=== PATIENT | male | born 1955 | race Caucasian/White ===

== ENCOUNTER 2024-11-02 18:49 | Emergency (ER) | payer MEDICARE, SELFPAY ==
[2024-11-02 18:50] VITALS: BP 135/81; PULSE 83; RESP 16; TEMP 37.1; O2SAT 95; BMI 28.1
--- NOTE | 2024-11-02 18:57 | EKG12_ITS ---
Test Reason : CP Blood Pressure : */* mmHG Vent. Rate : 84 BPM Atrial Rate : 84 BPM P-R Int : 218 ms QRS Dur : 100 ms QT Int : 348 ms P-R-T Axes : 15 53 34 degrees QTcB Int : 411 ms Sinus rhythm with 1st degree A-V block Otherwise normal ECG Confirmed by ERIN TAY, LALY ([id number]), staff editor ESTUARDO VILLEGAS ([id number]) on 11/03/2024 1:36:14 PM Referred By: DR HOLLOWAY Confirmed By: LALY KHAN MD
--- NOTE | 2024-11-02 19:17 | ED.VIS.CHEST ---
HPI History of Present Illness Chief Complaint: Chest Pain Informant: patient and spouse/S.O. Narrative Narrative: Intermittent left-sided chest heaviness for last 8 days. Numbness down the back of his left arm. States come and go. 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 This goes away. No dyspnea no nausea no diaphoresis. No cardiac history. History of hyperlipidemia was previously on a statin. Denies diabetes or hypertension. Brother had his first [place] in his 60s. Patient does not smoke. No cough symptoms. Currently symptom-free. Denies any history of stress test or heart catheterizations. Patient with 2 episodes today. States long the symptoms will last will be a few minutes. Prior Similar Symptoms: No CVD Risk Factors: Positive for Hypercholesterolemia; Negative for Hypertension, Diabetes, Family History 1' </=55 or Smoking PE Risk Factors: Negative for Recent Travel/Surgery, Recent Immobilization or Prior DVT or PE PFSH PFSH Medical History no medical history Home Medications ?Medication ?Instructions ?Recorded ?Last Taken ?Type NK 11/02/24 Unknown History Allergy/AdvReac Type Severity Reaction Status Date / Time No Known Allergies Allergy Verified 11/02/24 18:50 Surgical History no surgical history Social History Smoking Status: Never smoker ROS ROS ED Constitutional Constitutional ED: Denies chills, fever(s) or sweats ENT ENT ED: Denies sore throat Cardiovascular Cardiovascular: Reports chest pain; Denies leg edema, palpitations or racing heartbeat Respiratory/Chest Respiratory/Chest: Denies cough, dyspnea or dyspnea on exertion Gastrointestinal Gastrointestinal: Denies abdominal pain, diarrhea, nausea or vomiting Genitourinary Genitourinary ED: Denies dysuria, hematuria or urinary frequency Musculoskeletal Musculoskeletal: Denies back pain, extremity pain or neck pain Integumentary Denies rash or wounds Neurologic Neurologic: Denies headache(s), paresthesias or weakness EXAM Physical Exam Const Vital Signs: 11/02/24 18:50 11/02/24 19:28 11/02/24 19:28 Temperature 98.8 F Temperature Source Oral Pulse Rate 83 Respiratory Rate 16 Respiratory Effort Normal Blood Pressure 135/81 H Blood Pressure Mean 99 Pulse Ox 95 Oxygen Delivery Method Room Air Room Air 11/02/24 19:49 11/02/24 20:00 11/02/24 21:00 Temperature Temperature Source Pulse Rate 84 77 71 Respiratory Rate 17 15 16 Respiratory Effort Blood Pressure 122/76 H 129/77 H 123/76 H Blood Pressure Mean 91 94 91 Pulse Ox 95 95 94 Oxygen Delivery Method Room Air Room Air Room Air 11/02/24 22:00 11/02/24 22:15 Temperature 98 F Temperature Source Pulse Rate 76 76 Respiratory Rate 14 14 Respiratory Effort Blood Pressure 128/90 H 128/90 H Blood Pressure Mean 102 102 Pulse Ox 96 96 Oxygen Delivery Method Room Air Positive well nourished and well developed General Appearance ED: well developed and NAD HEENT Reports moist mucous membranes normocephalic and atraumatic Eyes General Eye ED: Yes normal appearance of both eyes Neck full ROM Chest Wall Chest: Negative for tenderness Resp normal respiratory effort and normal air movement Effort and Inspection: symmetric chest movement; Negative for respiratory distress Cardio regular rate, regular rhythm and no murmurs Peripheral Pulses: pulses 2+ throughout GI normal to inspection, nondistended, normoactive bowel sounds and non-tender Palpation: Negative for guarding or rebound tenderness present Extremity normal to inspection General Extremety ED: Negative for edema or tenderness General Extremity: Negative for edema Neuro oriented x3 and no sensory deficits noted Sensorium / Orientation: awake and alert Skin no rashes or lesions noted and no wounds MDM MDM MDM Narrative Medical decision making narrative: Interventions / MDM: Differential diagnosis: Chest pain Diagnosis considered but do not suspect: ACS however EKG and cardiac enzymes negative. My EKG interpretation: Sinus rate of 84, no ST changes. QTc 411. Imaging independently reviewed and interpreted by myself: 1 view chest x-ray: No acute process also read by radiology. External documents reviewed: N/A Test considered but not ordered:N/A ED course: Intermittent chest heaviness left arm pain for last 8 days. None currently. EKG sinus rhythm no acute findings. Cardiac workup initiated. Will give aspirin. Chest x-ray ordered. 1999: Initial troponin 8, negative. Creatinine 1. Potassium 4.4. Hemoglobin 13.3. Chest x-ray negative. Will await delta troponin. Remains symptom-free. 2206: Delta troponin also negative at 7. Remains symptom-free. Discussed follow-up with his PCP further testing as an outpatient. Discussed return precautions. All questions were answered. Re-evaluation: stable Disposition discussed with patient/family/significant other: Patient and significant other Case discussed with consulting clinician: N/A This note was generated with [employer] dictation software. It may contain incorrect words, spelling, and punctuation that were not noted in checking the note before signing. Lab Data Attestation: I reviewed the patient's lab results. Labs: Laboratory Results - last 24 hr 11/02/24 11/02/24 19:17 21:20 WBC 5.3 RBC 4.89 Hgb 13.3 Hct 40.2 MCV 82.2 MCH 27.2 MCHC 33.1 RDW Std Deviation 39.3 RDW Coeff of Lynnette 13.2 Plt Count 247 MPV 9.1 Immature Gran % (Auto) 0.200 Neut % (Auto) 62.2 Lymph % (Auto) 22.0 Casey % (Auto) 9.2 Eos % (Auto) 5.6 H Baso % (Auto) 0.8 Absolute Neuts (auto) 3.3 Absolute Lymphs (auto) 1.17 Nucleated RBC % 0 Sodium 140 Potassium 4.4 Chloride 103 Carbon Dioxide 25.0 Anion Gap 12 BUN 17 Creatinine 1.00 Estim Creat Clear Calc 81.00 Est GFR (MDRD) Non-Af 83 BUN/Creatinine Ratio 17.4 Glucose 104 H Calcium 8.8 Troponin T High Sens 8 Troponin T Hi Sens 2 Hr 7 Radiography Diagnostic Testing: Clinical Impression(s) from Imaging Studies Chest X-Ray 11/02/24 19:25 IMPRESSION: No acute cardiopulmonary disease. Reading Location: [facility] Discharge Plan Triage Chief Complaint: Chest Pain ED Provider: Miguel Marroquin Dx/Rx/DC Orders Clinical Impression: Chest pain Instructions: ED Chest Pain, Uncertain Cause Prescriptions: No Action NK Primary Care Provider: Elroy Taylor Referrals: Elroy Taylor MD [Primary Care Provider] - 3-5 Days Activity Restrictions/Additional Instructions: Your cardiac workup negative. You are symptom-free most reevaluations. Follow-up with your PCP, you will likely need stress test for further testing. If you develop recurrent symptoms worsen, return immediately to the ED for reevaluation. Print Language: Norwegian Disposition Disposition: Home, Self Care Discharge Date/Time: 11/02/24 22:25
[2024-11-02 19:25] LABS: Hematocrit 40.2 % (40-54); Hemoglobin 13.3 g/dL (13.0-16.5); Immature Granulocytes Count 0.010 X10^3/uL (0.0-0.0); Mean Corp Hgb Conc 33.1 g/dL (32-36); Mean Corpuscular Volume 82.2 fL (80-94); Mean Platelet Vol. 9.1 fl (6.2-12.0); NRBC Flagged by Analyzer 0 % (0-5); Platelet Count 247 K/mm3 (150-450); RBC Distribution Width CV 13.2 % (11.6-14.6); RBC Distribution Width SD 39.3 fl (35.1-43.9); Red Blood Count 4.89 M/mm3 (4.6-6.2); White Blood Count 5.3 K/mm3 (4.4-11.0)
--- NOTE | 2024-11-02 19:25 | RAD_ITS ---
PROCEDURE: CHEST 1 VIEW (PORTABLE) 11/02/2024 REASON FOR EXAM: CHEST PAIN TECHNIQUE: Frontal view of the chest. COMPARISON: None. FINDINGS: Lungs/Pleura: Clear. No pneumothorax or sizable pleural effusion. Heart/Mediastinum: Normal in size. Bones/Soft tissues: Unremarkable. RAD/Chest 1 View (Portable) IMPRESSION: No acute cardiopulmonary disease. Reading Location: [id number]
--- NOTE | 2024-11-02 19:34 | PCA ---
no old ekg
[2024-11-02 19:46] LABS: Anion Gap 12 (5-15); BUN 17 mg/dL (4-19); BUN/Creat Ratio 17.4 RATIO (10-20); Calcium,Total 8.8 mg/dL (7.6-11.0); Carbon Dioxide 25.0 mmol/L (21.0-32.0); Chloride 103 mmol/L (98-108); Estimated Creatinine Clearance 81.00 ml/min (50-250); Glucose 104 mg/dL (70-99); Potassium 4.4 mmol/L (3.3-5.1); Troponin T High Sensitivity 8 ng/L (<=22)
[2024-11-02 19:49] VITALS: BP 122/76; PULSE 84; RESP 17; O2SAT 95
[2024-11-02 20:00] VITALS: BP 129/77; PULSE 77; RESP 15; O2SAT 95
[2024-11-02 21:00] VITALS: BP 123/76; PULSE 71; RESP 16; O2SAT 94
[2024-11-02 21:50] LABS: Troponin T High Sens 2 HR 7 ng/L (<=22)
[2024-11-02 22:00] VITALS: BP 128/90; PULSE 76; RESP 14; O2SAT 96
[2024-11-02 22:15] VITALS: BP 128/90; PULSE 76; RESP 14; TEMP 36.6; O2SAT 96
== END 2024-11-02 22:25 | disposition home or self-care (01) ==
PROVIDERS: Emergency Provider Emergency Medicine; PCP Family Medicine; Visit Provider Emergency Medicine
DX: R07.9 Chest pain, unspecified (principal); R20.0 Anesthesia of skin; E78.00 Pure hypercholesterolemia, unspecified
CPT/HCPCS: 71045; 80048; 84484; 85025; 93005; 99284; A4216